=== PATIENT | female | born 1945 ===

== ENCOUNTER 2017-09-29 11:59 | Outpatient (CLI) | payer OTHER ==
[~2017-09-29] VITALS: Ht 157.5 cm; Wt 72.6 kg
== END 2017-09-29 12:15 | disposition home or self-care (01) ==
LOC: OFIC 805 11:59
DX: J34.89 Other specified disorders of nose and nasal sinuses (principal); S02.2XXS Fracture of nasal bones, sequela; W18.39XS Other fall on same level, sequela; R42 Dizziness and giddiness

== ENCOUNTER 2017-10-16 10:23 | Outpatient (CLI) | payer OTHER ==
[~2017-10-16] VITALS: Ht 152.4 cm; Wt 72.6 kg
== END 2017-10-16 10:45 | disposition home or self-care (01) ==
LOC: OFIC 805 10:23
DX: J34.89 Other specified disorders of nose and nasal sinuses (principal); S02.2XXS Fracture of nasal bones, sequela; X58.XXXS Exposure to other specified factors, sequela

== ENCOUNTER 2019-02-08 10:02 | Outpatient (CLI) | payer OTHER ==
[~2019-02-08] VITALS: Ht 152.4 cm; Wt 72.6 kg
== END 2019-02-08 12:39 | disposition home or self-care (01) ==
LOC: OFIC 805 10:02
DX: H90.3 Sensorineural hearing loss, bilateral (principal); R42 Dizziness and giddiness